=== PATIENT | male | born 1955 | race Caucasian/White ===

== ENCOUNTER → 2016-09-18 | Outpatient (CLI) | payer BC ==
[~2016-09-18] MED LIST: ALFU10TA2 PO; CLON1TAB3 PO; LINE600T5 PO; LISI10TA PO; PHENOBARBITAL 16.2 MG PO; [UNRECOGNIZED DRUG - CODE] PO
[2016-09-18 13:30] LABS: URINE APPEARANCE TURBID (CLEAR); URINE BILIRUBIN NEG (NEG); URINE COLOR DK YELLOW; URINE NITRITE NEG (NEG); URINE SPECIFIC GRAVITY 1.028 (1.000-1.030); UROBILINOGEN NEG (NEG)
[2016-09-18 13:39] LABS: CHOLESTEROL/HDL RATIO 6.3; PROSTATE SPECIFIC ANTIGEN 2.35 ng/ml (0.000-4.000)
[2016-09-18 13:46] LABS: MANUAL MICROSCOPIC REQUIRED? NO; REVIEW REQ? NO
== END | disposition home or self-care (01) ==
LOC: C.LABMFLN 08:19
PROVIDERS: ATTEND Family Medicine
DX: Z11.59 Encounter for screening for other viral diseases (principal); N40.1 Benign prostatic hyperplasia with lower urinary tract symptoms; E78.5 Hyperlipidemia, unspecified